=== PATIENT | male | born 1990 | race Caucasian/White ===

== ENCOUNTER 2017-12-26 12:54 | Emergency (ER) | payer OTHER ==
[~2017-12-26] VITALS: Ht 185.4 cm; Wt 54.2 kg
[2017-12-26 12:56] VITALS: TEMP 36.7; Ht 185.4 cm; Wt 54.2 kg
[2017-12-26 13:13] VITALS: O2SAT 96
[2017-12-26] MEDS ORDERED: KETOROLAC TROMETHAMINE 30 MG/ML VIAL IV STA (13:22)
[2017-12-26 13:31] LABS: BASO % 0.2 %; BASO ABS # 0.01 K/uL (0-0.2); EOS % 0.9 %; EOS ABS # 0.04 K/uL (0-0.5); HEMATOCRIT 45.3 % (42-52); HEMOGLOBIN 16.5 g/dL (14.0-18.0); IG# 0.01 K/uL (0.00-0.02); LYMPH % 48.4 %; LYMPH ABS # 2.18 K/uL (1.2-3.4); MEAN CELL VOLUME 86.5 fL (80-100); MEAN CORPUSCULAR HEMOGLOBIN 31.5 pg (25-34); MEAN CORPUSCULAR HGB CONC 36.4 g/dl (32-36); MEAN PLATELET VOLUME 9.4 fL (7.4-10.4); MONO ABS # 0.36 K/uL (0.11-0.59); NEUT % 42.3 %; PLATELET COUNT 140 K/uL (130-400); RED CELL DISTRIBUTION WIDTH CV 11.9 % (11.5-14.5); RED CELL DISTRIBUTION WIDTH SD 38.1 fL (36.4-46.3)
[2017-12-26 13:39] LABS: ALBUMIN 4.7 gm/dl (3.4-5.0); ALT/SGPT 48 U/L (12-78); BLOOD UREA NITROGEN 15 mg/dl (7-18); CARBON DIOXIDE 31 mmol/L (21-32); CREATININE 0.88 mg/dl (0.60-1.40); GLUCOSE 91 mg/dl (70-99); LIPASE 207 U/L (73-393); POTASSIUM 3.7 mmol/L (3.5-5.1); SODIUM 139 mmol/L (136-145)
[2017-12-26 13:50] LABS: ALKALINE PHOSPHATASE 60 U/L (45-117); AST/SGOT 53 U/L (15-37); TOTAL PROTEIN 8.4 gm/dl (6.4-8.2)
--- NOTE | 2017-12-26 13:52 | EMERGENCY ROOM VISIT NOTE ---
History First contact with patient: 13:07 Chief Complaint: CHEST PAIN Stated Complaint: CHEST TIGHTNESS Nursing Triage Summary: Patient states he woke up this morning with chest pain that goes to back. Denies shortness of breath. In the past has felt arrythmias when working out. History of Present Illness The patient is a 27 year old male who presents to the Emergency Room with complaints of dull, midsternal chest pain that started this morning at 5 AM. The pain has been constant since. He denies any exacerbating or relieving factors. He has not taken anything for the pain. He denies any shortness of breath. Deep breaths do not exacerbate the pain. He denies any recent cough or fever. No history of cardiac disease or blood clots. No recent long travel. He does not smoke. He denies any nausea or dizziness. He does complain of some intermittent heart palpitations during working out. This is been going on for several months. Review of Systems 10 system review performed and negative unless noted in HPI or below Past Medical/Surgical History Otherwise healthy Social History Smoking Status: Never Smoker Current/Historical Medications No Active Prescriptions or Reported Meds Physical Exam Vital Signs Date Time Temp Pulse Resp B/P (MAP) Pulse Ox O2 Delivery O2 Flow Rate FiO2 12/26/17 15:42 58 16 127/77 99 Room Air 12/26/17 14:48 65 18 127/76 97 Room Air 12/26/17 13:13 96 Room Air 12/26/17 13:09 76 12/26/17 12:56 36.7 61 16 166/103 99 Room Air Physical Exam VITALS: Vitals are noted on the nurse's note and reviewed by myself. Vital signs stable. GENERAL: 27-year-old male, in no acute distress, nondiaphoretic, well-developed well-nourished. SKIN: The skin was without rashes, erythema, edema, or bruising. HEAD: Normocephalic atraumatic. MOUTH: Mucous membranes moist. NECK: Supple without nuchal rigidity. No JVD. HEART: Regular rate and rhythm without murmurs gallops or rubs. LUNGS: Clear to auscultation bilaterally without wheezes, rales or rhonchi. No accessory muscle use. No tenderness over the Thora ABDOMEN: Positive bowel sounds x 4.Soft, nontender, without organomegaly. No guarding or rebound tenderness. MUSCULOSKELETAL: No muscle atrophy, erythema, or edema noted. Strength 5/5 throughout. NEURO: Patient was alert and oriented to person place and time. Normal sensation to touch. No focal neurological deficits. Medical Decision & Procedures ER Provider Diagnostic Interpretation: CXR IMPRESSION: No acute process. The above report was generated using voice recognition software. It may contain grammatical, syntax or spelling errors. Electronically signed by: Gurdeep Aguirre M.D. 12/26/2017 1:51 PM Dictated Date/Time: 12/26/2017 1:50 PM The status of this report is Signed. Draft = Not yet reviewed or approved by Radiologist. Signed = Reviewed and approved by Radiologist. <AttendingPhy></AttendingPhy> <FamilyPhy>No Doctor, Assigned</FamilyPhy> < PrimaryPhy>No Doctor, Assigned</PrimaryPhy> <UnitNumber>[id number]</UnitNumber> <VisitNumber>[id number]</VisitNumber> <PatientName>LUIS FERNANDO BARAJAS Suman</PatientName> < DateOfBirth>1990</DateOfBirth> <Location>[facility]</Location> <ServiceDate></ServiceDate> <MNE>ESINDI</MNE> <OrderingPhy>Chacha Cherry PA-C</ OrderingPhy> <OrderingPhyMNE>f rep ord dr dotson</OrderingPhyMNE> <DictatingPhyMNE> f rep dict dr dotson</DictatingPhyMNE> <CCListMNE>f rep ct mne</CCListMNE> < AdmittingPhyMNE>f pt admit dr dotson</AdmittingPhyMNE> <AttendingPhyMNE>f pt attend dr dotson</AttendingPhyMNE> <ConsultingPhyMNE>f pt consult dr dotson</ConsultingPhyMNE> <FamilyPhyMNE>f pt fam dr dotson</FamilyPhyMNE> <OtherPhyMNE>f pt other dr dotson</OtherPhyMNE> < PrimaryPhyMNE>f pt prim care dr dotson</PrimaryPhyMNE> <ReferringPhyMNE>f pt referring dr dotson</ReferringPhyMNE> Laboratory Results 12/26/17 13:10 Red Blood Count 5.24, Mean Corpuscular Volume 86.5, Mean Corpuscular Hemoglobin 31.5, Mean Corpuscular Hemoglobin Concent 36.4, Mean Platelet Volume 9.4, Neutrophils (%) (Auto) 42.3, Lymphocytes (%) (Auto) 48.4, Monocytes (%) (Auto) 8.0, Eosinophils (%) (Auto) 0.9, Basophils (%) (Auto) 0.2, Neutrophils # (Auto) 1.90, Lymphocytes # (Auto) 2.18, Monocytes # (Auto) 0.36, Eosinophils # (Auto) 0.04, Basophils # (Auto) 0.01 12/26/17 13:10 Test 12/26/17 13:10 White Blood Count 4.50 K/uL (4.8-10.8) Red Blood Count 5.24 M/uL (4.7-6.1) Hemoglobin 16.5 g/dL (14.0-18.0) Hematocrit 45.3 % (42-52) Mean Corpuscular Volume 86.5 fL (80-100) Mean Corpuscular Hemoglobin 31.5 pg (25-34) Mean Corpuscular Hemoglobin Concent 36.4 g/dl (32-36) Platelet Count 140 K/uL (130-400) Mean Platelet Volume 9.4 fL (7.4-10.4) Neutrophils (%) (Auto) 42.3 % Lymphocytes (%) (Auto) 48.4 % Monocytes (%) (Auto) 8.0 % Eosinophils (%) (Auto) 0.9 % Basophils (%) (Auto) 0.2 % Neutrophils # (Auto) 1.90 K/uL (1.4-6.5) Lymphocytes # (Auto) 2.18 K/uL (1.2-3.4) Monocytes # (Auto) 0.36 K/uL (0.11-0.59) Eosinophils # (Auto) 0.04 K/uL (0-0.5) Basophils # (Auto) 0.01 K/uL (0-0.2) RDW Standard Deviation 38.1 fL (36.4-46.3) RDW Coefficient of Variation 11.9 % (11.5-14.5) Immature Granulocyte % (Auto) 0.2 % Immature Granulocyte # (Auto) 0.01 K/uL (0.00-0.02) Anion Gap 6.0 mmol/L (3-11) Est Creatinine Clear Calc Drug Dose 95.8 ml/min Estimated GFR () 135.5 Estimated GFR (Non- 116.9 BUN/Creatinine Ratio 17.3 (10-20) Calcium Level 9.0 mg/dl (8.5-10.1) Total Bilirubin 1.7 mg/dl (0.2-1) Aspartate Amino Transf (AST/SGOT) 53 U/L (15-37) Alanine Aminotransferase (ALT/SGPT) 48 U/L (12-78) Alkaline Phosphatase 60 U/L (45-117) Troponin I < 0.015 ng/ml (0-0.045) Total Protein 8.4 gm/dl (6.4-8.2) Albumin 4.7 gm/dl (3.4-5.0) Globulin 3.7 gm/dl (2.5-4.0) Albumin/Globulin Ratio 1.3 (0.9-2) Lipase 207 U/L (73-393) Thyroid Stimulating Hormone (TSH) 2.580 uIu/ml (0.300-4.500) ECG Per My Interpretation Indication: chest pain Rate (beats per minute): 55 Rhythm: normal sinus ED Course Patient was seen and examined Vital signs including blood pressure were reviewed medications list was verified with patient Labs were obtained, and a saline lock was established The patient was medicated with Toradol 30 mg IV Imaging was performed and reviewed Upon reevaluation, the patient was resting comfortably. We discussed his workup. He voiced understanding, and was comfortable being discharged home. The case was also discussed with my supervising physician who is in agreement with my plan I reviewed discharge instructions the patient. They voiced understanding and had no further questions. Medical Decision Differential diagnosis: Acute myocardial infarction, cardiac arrhythmia, anemia , thyroid abnormality, pneumothorax, pneumonia, bronchitis, pericarditis, electrolyte imbalance, costochondritis This patient is a 27-year-old male presenting to the emergency department complaining of dull midsternal chest pain starting at 5 AM this morning. On exam, he was nontoxic in appearance. Heart and lungs unremarkable. He is not hypoxic or tachycardic. There are no risk factors for pulmonary embolus. His EKG shows no signs of ischemia. Troponin is negative. I believe this pain is likely musculoskeletal given his age. He was instructed to follow-up with his primary care physician. He was also instructed to follow-up with cardiology if he continues to experience her palpitations. He was in agreement/comfortable with this plan, was discharged in good condition. He will return with worsening symptoms. This chart was completed in part utilizing [employer] Voice Recognition software. Attempts were made to minimize the grammatical errors, random word insertions, pronoun errors and incomplete sentences. Any formal questions or concerns about the content, text or information contained within the body of this dictation should be directly addressed to the provider for clarification. Blood Pressure Screening Patient's blood pressure: Elevated blood pressure (Improved during stay) Impression Primary Impression: Chest pain Departure Information Dispostion Home / Self-Care Condition GOOD Prescriptions No Active Prescriptions or Reported Meds Referrals No Doctor, Assigned (PCP) Tc Douglas M.D. Patient Instructions [facility] Additional Instructions You have been evaluated in the emergency department for chest pain. There were no significant abnormalities in your workup today. Please follow-up with your primary care physician as soon as possible for a recheck. Call today for a follow-up appointment. If the heart palpitations continue, please follow-up with a nutrition aide. A number has been provided. Please take ibuprofen 600 mg every 8 hours as needed for discomfort Please do not hesitate to return to the emergency department with any new, worsening or concerning symptoms It was a pleasure participating in your care today Work Instructions Return To Work: 1 day
--- NOTE | 2017-12-26 13:53 | DIAGNOSTIC IMAGING REPORT ---
CHEST ONE VIEW PORTABLE HISTORY: 27 years-old Male midsternal CP acute atypical chest pain COMPARISON: None available TECHNIQUE: Portable AP view of the chest FINDINGS: Cardiomediastinal and hilar silhouettes are within normal limits. No pneumothorax, pleural effusion, focal airspace consolidation or overt pulmonary edema. The bones of the chest appear grossly intact. IMPRESSION: No acute process. The above report was generated using voice recognition software. It may contain grammatical, syntax or spelling errors. Electronically signed by: Gurdeep Aguirre M.D. 12/26/2017 1:51 PM Dictated Date/Time: 12/26/2017 1:50 PM
[2017-12-26 15:42] VITALS: BP 127/77; PULSE 58; O2SAT 99
== END 2017-12-26 15:47 | disposition home or self-care (01) ==
LOC: C.EDB 12:56 → C.EDA 15:47
DX: R07.9 Chest pain, unspecified (principal); R00.2 Palpitations